=== PATIENT | female | born 1960 | race Native Hawaiian/Other Pacific Islander ===

== ENCOUNTER 2020-07-26 18:41 | Outpatient (CLI) | payer OTHER ==
[2020-07-26 20:33] LABS: PLATELET COUNT 296 K/uL (152-353)
[2020-07-26 21:54] LABS: POTASSIUM 3.8 mmol/L (3.6-5.2)
== END 2020-07-26 21:32 | disposition home or self-care (01) ==
LOC: LAB 18:41
PROVIDERS: ATTEND Nurse Practitioner Family
DX: Z00.00 Encounter for general adult medical examination without abnormal findings (principal); Z79.899 Other long term (current) drug therapy; R53.83 Other fatigue; R53.81 Other malaise; I10 Essential (primary) hypertension; E11.9 Type 2 diabetes mellitus without complications
CPT/HCPCS: 80053; 80061; 82306; 82607; 83036; 84439; 84443; 85027